=== PATIENT | female | born 1950 | race Two or more races ===

== ENCOUNTER 2016-03-31 14:22 | Emergency (ER) | payer MEDICAID ==
[~2016-03-31] VITALS: Ht 172.7 cm; Wt 85.7 kg
[2016-03-31] MEDS ORDERED: ACETAMINOPHEN ES 500 MG TABLET ONE (15:08)
[2016-03-31] MEDS ORDERED: ACETAMINOPHEN ES 500 MG TABLET PO ONE (15:30)
[2016-03-31 16:43] VITALS: BP 126/81
== END 2016-03-31 16:45 | disposition home or self-care (01) ==
LOC: ER 14:23
DX: S62.346A Nondisplaced fracture of base of fifth metacarpal bone, right hand, initial encounter for closed fracture (principal); R51 Headache; S62.644A Nondisplaced fracture of proximal phalanx of right ring finger, initial encounter for closed fracture; W01.0XXA Fall on same level from slipping, tripping and stumbling without subsequent striking against object, initial encounter; Y93.01 Activity, walking, marching and hiking; Y92.480 Sidewalk as the place of occurrence of the external cause; Y99.9 Unspecified external cause status
CPT/HCPCS: 70450-TC; 73130-TC; A4606; Z7610

== ENCOUNTER 2016-06-21 17:43 | Emergency (ER) | payer MEDICAID ==
[~2016-06-21] VITALS: Ht 167.6 cm; Wt 83.9 kg
[2016-06-21 18:00] VITALS: BP 139/64
== END 2016-06-21 19:10 | disposition home or self-care (01) ==
LOC: ER 17:45
DX: Z47.89 Encounter for other orthopedic aftercare (principal)
CPT/HCPCS: 73130; 99284; A4606; Z7610

== ENCOUNTER 2018-04-25 16:17 | Emergency (ER) | payer MEDICAID ==
[2018-04-25] MEDS: LIDOCAINE HCL/PF 1% 30 ML VIAL TP ONE (16:58)
[2018-04-25] MEDS ORDERED: LIDOCAINE /MPF 1% VIAL 5 ML VIAL ONE (17:08)
[2018-04-25] MEDS ORDERED: LIDOCAINE HCL/PF 2 % 5ML SDV 5 ML VIAL ONE (17:11)
== END 2018-04-25 17:37 | disposition home or self-care (01) ==
LOC: ER 16:21
DX: L03.012 Cellulitis of left finger (principal)
CPT/HCPCS: 10060; 99283; J3490 ×3

== ENCOUNTER 2018-06-08 19:28 | Emergency (ER) | payer MEDICAID ==
--- NOTE | 2018-06-08 21:06 | NUR ---
CALLED TO BE TRIAGED, NO ANSWER
--- NOTE | 2018-06-08 21:27 | NUR ---
CALLED PT TO BE TRAIGED, NO ANSWER
--- NOTE | 2018-06-08 21:39 | NUR ---
CALLED TO BE TRIAGED, NO ANSWER
== END 2018-06-08 21:46 | disposition left against medical advice (07) ==
LOC: ER 19:29
DX: Z53.21 Procedure and treatment not carried out due to patient leaving prior to being seen by health care provider (principal)

== ENCOUNTER 2021-09-02 13:09 | Emergency (ER) | payer MEDICARE, OTHER ==
[~2021-09-02] VITALS: Ht 170.2 cm; Wt 93.4 kg
--- NOTE | 2021-09-02 13:40 | NUR ---
BIBS C/O BI FOOT PAIN AND RIGHT ANKLE SWELLING "I TWISTED IT LAST NIGHT". THE PATIENT RATES PAIN 6/10. WILL CONTINUE TO MONITOR THE PATIENT.
--- NOTE | 2021-09-02 13:58 | NUR ---
DR EDGE AT THE BEDSIDE
[2021-09-02] MEDS ORDERED: IBUP-1955 PO (15:28)
[2021-09-02] MEDS ORDERED: IBUPROFEN 600 MG TABLET ONE (15:30)
[2021-09-02] MEDS ORDERED: IBUPROFEN 600 MG TABLET PO ONE (15:30)
[2021-09-02 15:39] VITALS: BP 150/109
--- NOTE | 2021-09-02 15:39 | NUR ---
Patient discharged to home in stable condition. Written and verbal after care instructions given. Patient verbalizes understanding of instruction.
== END 2021-09-02 15:40 | disposition home or self-care (01) ==
LOC: ER 13:14
DX: S93.401A Sprain of unspecified ligament of right ankle, initial encounter (principal); M79.672 Pain in left foot; M79.671 Pain in right foot; X50.1XXA Overexertion from prolonged static or awkward postures, initial encounter; Y93.89 Activity, other specified; Y92.89 Other specified places as the place of occurrence of the external cause; Y99.8 Other external cause status
CPT/HCPCS: 73610-TC

== ENCOUNTER 2024-08-05 17:37 | Emergency (ER) | payer MEDICARE, OTHER ==
[~2024-08-05] VITALS: Ht 170.2 cm; Wt 81.6 kg
[~2024-08-05 17:37] MED LIST: IBUP-1955 PO
[2024-08-05 18:10] LABS: BASOPHILS # (AUTO) 0.1 K/uL (0.0-0.2); BASOPHILS % (AUTO) 0.9 % (0.0-2.0); EOSINOPHILS # (AUTO) 0.1 K/uL (0.0-0.7); HEMATOCRIT 41 % (33-45); HEMOGLOBIN 14.1 g/dL (11.5-14.8); LYMPHOCYTES # (AUTO) 2.1 K/uL (0.8-4.8); LYMPHOCYTES % (AUTO) 24.3 % (20.0-44.0); MEAN CORPUSCULAR HEMOGLOBIN 30 PG (26.0-33.0); MEAN CORPUSCULAR HGB CONC 34 g/dl (31.0-36.0); MEAN CORPUSCULAR VOLUME 89 fL (82-100); MONOCYTES # (AUTO) 0.8 K/uL (0.1-1.30); MONOCYTES % (AUTO) 8.7 % (2.0-12.0); NEUTROPHILS # (AUTO) 5.7 K/uL (1.8-8.9); NEUTROPHILS % (AUTO) 65.1 % (43.0-81.0); PLATELET COUNT (AUTO) 189 K/uL (150-450); RED BLOOD CELL COUNT(AUTO) 4.67 MIL/uL (4.0-5.2); RED CELL DISTRIBUTION WIDTH 13.1 % (11.5-15.0); WHITE BLOOD COUNT (AUTO) 8.8 K/uL (4.3-11.0)
[2024-08-05 18:21] LABS: CARBON DIOXIDE 23 mmol/L (21-32); CHLORIDE 107 mmol/L (98-107); CREATININE 0.8 mg/dL (0.6-1.3); GLUCOSE 135 mg/dL (74-106); SODIUM SERUM 138 mmol/L (136-145); UREA NITROGEN, BLOOD 16 mg/dL (7-18)
[2024-08-05] MEDS ORDERED: ASPIRIN EC 325 MG TABLET.DR PO ONE (20:28)
[2024-08-05] MEDS: ASPIRIN EC 325 MG TABLET.DR PO ONE (20:37)
[2024-08-05 20:38] VITALS: BP 134/78; TEMP 98; O2SAT 96
== END 2024-08-05 20:39 | disposition home or self-care (01) ==
LOC: ER 17:47
DX: R07.89 Other chest pain (principal); E78.5 Hyperlipidemia, unspecified; Z79.1 Long term (current) use of non-steroidal anti-inflammatories (NSAID); Z79.899 Other long term (current) drug therapy
CPT/HCPCS: 36415; 71045-TC; 80048-TC; 84484-TC; 85025-TC